=== PATIENT | male | born 1990 | race Caucasian/White ===

== ENCOUNTER 2023-11-09 17:23 | Emergency (ER) | payer OTHER, SELFPAY ==
[2023-11-09 17:26] VITALS: BP 144/83; PULSE 118; RESP 22; O2SAT 92
[2023-11-09 17:31] LABS: Glucose Point of Care 423 mg/dl (65-105)
--- NOTE | 2023-11-09 17:40 | ED.ALLEREA ---
HPI - Allergic Reaction General Chief complaint: Allergic Reaction <FEMI Benjamin Last Filed: 11/10/23 02:29> Stated complaint: allergic reaction <FEMI Benjamin Last Filed: 11/10/23 02:29> Time Seen by Provider: 11/09/23 17:40 <Swapnil Reid PA-C - Last Filed: 11/10/23 02:29> Source: patient <FEMI Benjamin Last Filed: 11/10/23 02:29> Mode of arrival: ambulatory <FEMI Benjamin Last Filed: 11/10/23 02:29> Limitations: no limitations <FEMI Benjamin Last Filed: 11/10/23 02:29> History of Present Illness HPI narrative: This is a 33-year-old male who presents to the ED with chief complaint possible allergic reaction. States that he got to work today and shortly after started to break out into a diffuse bodily rash. States that he started to feel short of breath so he came here. States he has known allergies to strawberries and bee stings but is not reporting any known exposure. States he works as a cook and had just started his day when this began. <FEMI Benjamin Last Filed: 11/10/23 02:29> Related Data Allergies/adverse reactions: Allergies Allergy/AdvReac Type Severity Reaction Status Date / Time strawberry Allergy Unknown VOMITING Verified 03/18/19 14:41 Bumble Bee Allergy Unknown SWELLING/DRAINAGE Uncoded 03/18/19 14:41 @ SITE <FEMI Benjamin Last Filed: 11/10/23 02:29> Review of Systems Review of Systems: All systems as dictated in HPI <FEMI Benjamin Last Filed: 11/10/23 02:29> FORMERLY [facility], [facility] Past Medical History Medical History: Medical History (Updated 11/10/23 @ 00:00 by Background Daemon) Arthritis back Fractures rt scapula GERD (gastroesophageal reflux disease) History of coronary artery disease History of diabetes mellitus <FEMI Benjamin Last Filed: 08/30/24 02:29> Surgical History Surgical History: Surgical History Hx of cholecystectomy Hx of tonsillectomy <Swapnil Reid PA-C - Last Filed: 11/10/23 02:29> Family History Family History: Family History Mother Family history of chronic obstructive pulmonary disease Family history of diabetes mellitus in first degree relative Father Family history of diabetes mellitus in first degree relative Sibling Patient's brother is <Swapnil Reid PA-C - Last Filed: 11/10/23 02:29> Social History Social History: Social History Smoking status: Current every day smoker Alcohol intake: never Gender identity (if verbalized by the patient): Male <Swapnil Reid PA-C - Last Filed: 11/10/23 02:29> Exam Narrative: GENERAL: Diaphoretic. appears in moderate distress HEAD: Normocephalic, atraumatic. EYES: PERRLA and EOMI. ENT: Nares clear, no rhinorrhea or epistaxis. Mucous membranes moist. Oropharynx without tonsillar hypertrophy exudate or other lesions. NECK: Supple. No adenopathy or masses. CHEST: mildly tachypneic. Mild wheezes heard bilaterally. Maintaining airway HEART: tachycardic in the 120s. No murmur heard. Normal peripheral pulses. ABDOMEN: Soft, nontender, nondistended, normal active bowel sounds. MSK: Normal range of motion. No edema. SKIN: flushed skin. NEURO: Alert and oriented x4. No focal deficits. PSYCH: Normal mood and affect. <Swapnil Reid PA-C - Last Filed: 11/10/23 02:29> Course TUNNEL KILN FIRER/PA Physician Supervision For this patient encounter, I reviewed the TUNNEL KILN FIRER or PA documentation, treatment plan, and medical decision making; and I had [id number] time with this patient. <Aakash Grover MD - Last Filed: 11/10/23 07:22> Reevaluation(s) Reevaluation #1: Patient is doing much better symptomatically. No longer appears in distress. <Swapnil Reid PA-C - Last Filed: 11/10/23 02:29> Date: 11/09/23 <LANDRY BenjaminC
[2023-11-09] MEDS: FAMOTIDINE 20 MG/2 ML VIAL IV PUSH (17:43)
[2023-11-09] MEDS: diphenhydrAMINE HCl INJ 50 MG/ML VIAL IV PUSH (17:44)
[2023-11-09] MEDS: methylPREDNISolone SOD SUCC 125 MG VIAL IV PUSH (17:44)
[2023-11-09] MEDS: EPINEPHrine HCL INJ 1 MG/ML AMPUL 0.3 MG IM (17:46)
[2023-11-09] MEDS: SODIUM CHLORIDE 0.9% IV 1,000 ML 999 ML IV CONT ×2 (17:50)
[2023-11-09 18:01] VITALS: BP 122/74; PULSE 105; RESP 20; O2SAT 95
[2023-11-09 18:09] LABS: Lactic Acid Reflex 1.8 mmol/L (0.7-2.0)
[2023-11-09 18:10] LABS: Alanine Aminotransferase 82 U/L (6-50); Albumin Level 3.9 g/dL (3.5-5.1); Alkaline Phosphatase 189 U/L (38-126); Anion Gap 10 mmol/L (4-12); Aspartate Amino Transferase 67 U/L (17-59); Bilirubin,Total 0.8 mg/dL (0.2-1.3); Blood Urea Nitrogen 15 mg/dL (9-20); Calcium 8.8 mg/dL (8.4-10.2); Carbon Dioxide 31 mmol/L (22-30); Chloride 93 mmol/L (98-107); Estimated CRCL calculation 202 ml/min; Estimated Glomerular Filt Rate > 60; Glucose 379 mg/dL (65-110); Sodium 134 mmol/L (137-145)
[2023-11-09 18:13] VITALS: O2SAT 95
[2023-11-09 18:22] LABS: Basophils Percent Auto 0.1 % (0.2-1.2); Eosinophils Absolute Auto 0.1 K/mm3 (0-0.3); Hemoglobin 16.6 g/dL (14.0-18.0); Immature Granulocyte Absolute 0.09 K/mm3 (0.00-0.031); Immature Granulocyte Percent A 0.7 % (0-0.5); Lymphocytes Absolute Auto 3.53 K/mm3 (0.9-3.2); Lymphocytes Percent Auto 26.3 % (18.3-44.2); Mean Corpuscular HGB Conc 35.3 g/dl (32-36); Mean Corpuscular Hemoglobin 28.8 pg (26-34); Mean Corpuscular Volume 81.5 fl (80-100); Mean Platelet Volume 10.7 fl (7.4-10.4); Monocytes Absolute Auto 0.6 K/mm3 (0.1-0.6); Monocytes Percent Auto 4.5 % (2.6-8.5); Neutrophils Percent Auto 67.4 % (45.5-73.1); Platelet Count Result 282 k/mm3 (150-375); Red Blood Count 5.77 M/mm3 (4.6-6.20); Red Cell Distribution Width 14.6 % (11.5-14.5); White Blood Count 13.4 K/mm3 (4.5-10.0)
[2023-11-09 19:21] VITALS: BP 107/60; PULSE 102; RESP 20; O2SAT 95
--- NOTE | 2023-11-09 19:22 | PC.NURSE ---
Assumed care of pt from WHITNEY Asif at this time. Pt resting comfortably in bed with call light within reach.
[2023-11-09 20:58] VITALS: BP 119/63; PULSE 99; RESP 22; TEMP 36.6; O2SAT 97
== END 2023-11-09 20:59 | disposition home or self-care (01) ==
PROVIDERS: Emergency Provider Physician Assistant; PCP Family Medicine
DX: T78.40XA Allergy, unspecified, initial encounter (principal); I25.10 Atherosclerotic heart disease of native coronary artery without angina pectoris; E11.9 Type 2 diabetes mellitus without complications; K21.9 Gastro-esophageal reflux disease without esophagitis; M19.90 Unspecified osteoarthritis, unspecified site; F17.200 Nicotine dependence, unspecified, uncomplicated; Z90.49 Acquired absence of other specified parts of digestive tract; X58.XXXA Exposure to other specified factors, initial encounter
CPT/HCPCS: 36415; 80053; 82948; 83605; 85025; 96361; 96372; 96374; 96375; 99284; J0171; J1200; J2919; J7030

== ENCOUNTER 2024-10-25 17:09 | Emergency (ER) | payer SELFPAY ==
--- NOTE | ~2024-10-25 | XR_ITS ---
CHEST RADIOGRAPH CLINICAL HISTORY: CP . COMPARISON: 12/12/2018 TECHNIQUE: Single portable view of the chest. FINDINGS The cardiomediastinal silhouette is within the upper limits of normal for size. Blunting of the left costophrenic sulcus suggesting a small left-sided pleural effusion. The remainder of the lungs are clear. IMPRESSION: Small left-sided pleural effusion without focal infiltrate. Reviewed, dictated and finalized at location A.
--- OUTSIDE RECORDS SUMMARY | 2024-10-25 17:12 | XMS_ITS | Encounter Summary ---
Author Organization [facility] Address [address] [place] [address] Phone Care Team Providers Care Air Pumper Name Role Phone Anthony Powers MD Primary Care Provider [phone] Bijal Glez Primary Care Provider + Garima Shaw MD Unavailable [phone] Colleen Salter APRN, JUNIOR UNDERWRITER Unavailable Reason for Visit * Reason Onset Date Comments PATIENT TRANSFER 10/31/2022 Encounter Details Date Type Department Care Team (Late st Contact Info) Description 10/31/2022 Telephone [facility] - [facility] [address] [place] [address] Anthony Powers MD [address] [place] [address] PATIENT TRANSFER Social History Tobacco Use Types Packs/Day Years Used Date Smoking Tobacco: Every Day Cigarettes 1 26.2 Started: 08/26/1998 Smokeless Tobacco: Never Alcohol Use Standard Drinks/Week Comments Not Currently 0 (1 standard drink = 0.6 oz pur e alcohol) rarely PHQ-2 Answer Date Recorded Total Score - Questions 1-9 0 08/11 Education Answer Date Recorded What is the highest level of school you have completed or the highest degree you have received? 10th grade 01/12/2021 Sexually Active Control Partners Comments Yes Female Sex and Gender Information Value Date Recorded Sex Assigned at Not on file Legal Sex Male 11:53 PM CDT Gender Identity Not on file Sexual Orientation Not on file documented as of this encounter Miscellaneous Notes * Telephone Encounter - Bijal Glez PAC - 10/31/2022 3:12 PM CDT ok * Telephone Encounter - Geetha Pereira - 10/31/2022 2:09 PM CDT Patient made an New Patient appointment with Bijal for 11/11/2022 on My Chart. He is a [facility] patient and would like to transfer to [facility]. Does Bijal accept the transfer? documented in this encounter Plan of Treatment Not on file documented as of this encounter Visit Diagnoses Not on filedocumented in this encounter Additional Health Concerns Infection Onset Date Last Indicated Resolved Time COVID - 19 03/16/2023 03/20/2023 03/22/2023 8:32 AM COMMERCIAL ENGINEER Respiratory Rule Out - RPA 03/20/2023 03/20/2023 0 03/21/2023 2:38 PM COMMERCIAL ENGINEER COVID - 19 11/01/2023 11/01/2023 11/01/2023 3:03 PM CDT COVID - 19 Confirmed 11/01/2023 11/01/2023 024 12:16 AM CDT COVID - 19 01/18/2024 01/18/2024 01/18/2024 8:02 PM COMMERCIAL ENGINEER Assessment Noted Time PHQ-9 Depression Total Score: 0 08/27/19 1:00 PM CDT documented as of this encounter Care Teams Air Pumper Relationship Specialty Start Date End Date Anthony Powers MD [address] [place] [address] PCP - General Internal Medicine 08/21/20 11/10/22 Bijal Glez, ALEXIS [address] [place] [address] PCP - General Physician Dairy Equipment Mechanic 11/11/22 Garima Shaw MD [address] [address] Consulting Physician Urology 10/19/21 Colleen Salter APRN, JUNIOR UNDERWRITER [address] [place] [address] Nurse Practitioner Advanced Practice Nurse 06/08/22 documented as of this encounter
--- OUTSIDE RECORDS SUMMARY | 2024-10-25 17:12 | XMS_ITS | Encounter Summary ---
Author Organization [facility] Address [address] [place] [address] Phone Care Team Providers Care Exterior Work Helper Name Role Phone Bijal Glez ALEXIS Primary Care Provider + Garima Shaw MD Unavailable [phone] Colleen Salter APRN, CNP Unavailable Reason for Visit * Reason Comments Medication Refill Encounter Details Date Type Department Care Team (Late st Contact Info) Description 11/15/2022 Refill [facility] - Primary Care - [place] [address] [place] [address] Anthony Powers MD [address] [place] [address] Medication Refill Social History Tobacco Use Types Packs/Day Years [...] on file Sexual Orientation Not on file COVID-19 Exposure Response Date Recorded In the last 10 days, have yo u been in contact with someone who was confirmed or suspected to have Coronavirus/COVID-19? No / Unsure 11/11/2022 10:29 AM CDT documented as of this encounter Miscellaneous Notes * Telephone Encounter - Radha Morataya RN - 11/15/2022 9:56 AM CDT The original prescription was discontinued on 11/11/2022 by Bijal Glez PAC for the following reason: Med List Clean Up. documented in this encounter Plan of Treatment Not on file documented as of this encounter Visit Diagnoses Diagnosis Intractable episodic cluster headache Episodic cluster headache documented in this encounter Additional Health Concerns Infection Onset Date Last Indicated Resolved Time COVID - 19 03/16/2023 03/20/2023 03/22/2023 8:32 AM JOURNEYMAN PRESS OPERATOR Respiratory Rule Out - RPA 03/20/2023 03/20/2023 0 03/21/2023 2:38 PM JOURNEYMAN PRESS OPERATOR COVID - 19 11/01/2023 11/01/2023 11/01/2023 3:03 PM CDT COVID - 19 Confirmed 11/01/2023 11/01/2023 024 12:16 AM CDT COVID - 19 01/18/2024 01/18/2024 01/18/2024 8:02 PM JOURNEYMAN PRESS OPERATOR Assessment Noted Time PHQ-9 Depression Total Score: 0 08/27/19 21 1:00 PM CDT documented as of this encounter Care Teams Exterior Work Helper Relationship Specialty Start Date End Date Bijal Glez PAC [address] [place] [address] PCP - General Physician Cyber Analyst 11/11/22 Garima Shaw MD [address] [address] Consulting Physician Urology 10/19/21 Colleen Salter APRN, [employer] [address] [place] [address] Nurse Practitioner Advanced Practice Nurse 06/08/22 documented as of this encounter
--- OUTSIDE RECORDS SUMMARY | 2024-10-25 17:12 | XMS_ITS | Encounter Summary ---
Author Organization [facility] Address [address] [place] [address] Phone Care Team Providers Care Director Epidemiology Name Role Phone Bijal Glez Primary Care Provider + Garima Shaw MD Unavailable [phone] Colleen Salter APRN, CNP Unavailable Reason for Visit * Reason Comments Medication Refill Encounter Details Date Type Department Care Team (Late st Contact Info) Description 08/05/2023 Refill [facility] [address] [place] [address] Bijal Glez PAC [address] [place] [address] Medication Refill Social History Tobacco Use Types Packs/Day Years Used Date Smoking Tobacco: Former Cigarettes 1 19 0 10/24/2022 - 03/20/2023 Smokeless Tobacco: Never Alcohol Use Standard Drinks/Week Comments Not Currently 0 (1 standard drink = 0.6 oz pur e alcohol) rarely [facility] Utilities Answer Date Recorded In the past 12 months has e electric, gas, oil, or water company threatened to shut off services in your home? No 05/10/2023 Social Connection and Isolation Panel Answer Date Recorded In a typical week, how many times do you talk on the phone with family, friends, or neighbors? More than three times a week 05/10/2023 How often do you get togethe r with friends or relatives? Twice a week 05/10/2023 How often do you attend chur ch or baptism services? Never 05/10/2023 Do you belong to any clubs o r organizations such as yazidi groups, unions, fraternal or athletic groups, or school groups? No 05/10/2023 How often do you attend meet ings of the clubs or organizations you belong to? Never 05/10/2023 Are you , , di vorced, , never , or living with a partner? 05/10/2023 AUDIT-C Answer Date Recorded Q1: How often do you have a drink containing alcohol? Never 05/10/2023 Q2: How many drinks containi ng alcohol do you have on a typical day when you are drinking? Patient does not drink Q3: How often do you have si x or more drinks on one occasion? Never 05/10/2023 Overall Financial Resource Strain (CARDIA) Answe r Date Recorded How hard is it for you to pa y for the very basics like food, housing, medical care, and heating? Not hard at all 05/10/2023 PHQ-2 Answer Date Recorded Total Score - Questions 1-9 0 08/11 [facility] - Occupational Stress Questionnaire Answer Date Recorded Do you feel stress - tense, restless, nervous, or anxious, or unable to sleep at night because your mind is troubled all the time - these days? Not at all 05/10/2023 Exercise Vital Sign Answer Date Recorde d On average, how many days pe r week do you engage in moderate to strenuous exercise (like a brisk walk)? 5 days 05/10/2023 On average, how many minutes do you engage in exercise at this level? 60 min 05/10/2023 Hunger Vital Sign Answer Date Recorded Within the past 12 months, y ou worried that your food would run out before you got the money to buy more. Never true Within the past 12 months, t he food you bought just didn't last and you didn't have money to get more. Sometimes true PRAPARE - Transportation Answer Date Re corded In the past 12 months, has l ack of transportation kept you from medical appointments or from getting medications? No 04/14 In the past 12 months, has l ack of transportation kept you from meetings, work, or from getting things needed for daily living? No 05/10/2023 Housing Stability Vital Sign Answer Roosevelt e Recorded In the last 12 months, was t here a time when you were not able to pay the mortgage or rent on time? No 05/10/2023 In the last 12 months, how many places have you lived? 1 05/10/2023 In the last 12 months, was t here a time when you did not have a steady place to sleep or slept in a correction (including now)? No 05/10/2023 Education Answer Date Recorded What is the [...] Telephone Encounter - Radha Morataya RN - 08/06/2023 12:49 PM CDT Medication failed the protocol, provider to review and approve the medication order if appropriate. Requested Prescriptions Pending Prescriptions Disp Refills ipratropium-albuterol (DUO-NEB) 0.5-2.5 (3) MG/3ML Solution [Pharmacy Med Name: IPRAT-ALBUT 0.5-3(2.5) MG/3 ML] 360 mL Sig: USE 1 VIAL VIA NEBULIZER FOUR TIMES DAILY NEEDED FOR WHEEZING OR SHORTNESS OF BREATH Inhaled Combinations Protocol Failed - 08/05/2023 12:02 AM Failed - Active short-acting beta agonist prescription Passed - Visit with relevant provider in past 12 months or upcoming 90 days Recent Visits Date Type Provider Dept 05/12/23 Office Visit Bijal Glez, ALEXIS [facility] 03/28/23 Office Visit Anthony Zambrano APRN, KRISTIN [facility] 02/10/23 Office Visit Bijal Glez, ALEXIS [facility] 11/11/22 Office Visit Bijal Glez PAC [facility] Showing recent visits within past 365 days and meeting all other requirements Future Appointments Date Type Provider Dept 09/11/23 Appointment Bijal Glez MarieALEXIS [facility] Showing future appointments within next 90 days and meeting all other requirements documented in this encounter Plan of Treatment Not on file documented as of this encounter Visit Diagnoses Diagnosis Community acquired pneumonia of both lower lobes Acute respiratory failure with hypoxia (HCC) Acute respiratory failure documented in this encounter Additional Health Concerns Infection Onset Date Last Indicated Resolved Time COVID - 19 11/01/2023 11/01/2023 11/01/2023 3:03 PM CDT COVID - 19 Confirmed 11/01/2023 11/01/2023 024 12:16 AM CDT COVID - 19 01/18/2024 01/18/2024 01/18/2024 8:02 PM MOUNTER CLARINETS Assessment Noted Time PHQ-9 Depression Total Score: 0 08/27/19 1:00 PM CDT documented as of this encounter Care Teams Director Epidemiology Relationship Specialty Start Date End Date Bijal Glez PAC [address] [place] [address] PCP - General Physician Heel Sprayer First 11/11/22 Garima Shaw MD [address] [address] Consulting Physician Urology 10/19/21 Colleen Salter APRN, STUDENT AFFAIRS DEAN [address] [place] [address] Nurse Practitioner Advanced Practice Nurse 06/08/22 documented as of this encounter
--- OUTSIDE RECORDS SUMMARY | 2024-10-25 17:12 | XMS_ITS | Encounter Summary ---
Author Organization [facility] Address [address] [place] [address] Phone Care Team Providers Care Testing Manager Name Role Phone Anthony Powers MD Primary Care Provider [phone] Bijal Glez Primary Care Provider + Garima Shaw MD Unavailable [phone] Colleen Salter APRN, TALENT REP Unavailable Reason for Visit * Reason Comments Medication Refill Encounter Details Date Type Department Care Team (Late st Contact Info) Description 07/01/2021 Refill [facility] - Gastroenterology - [place] [address] [place] [id number] Agatha West Nohelia, PAC [address] [place] [address] Medication Refill Social History Tobacco Use Types [...] 01/12/2021 Sexually Active Control Partners Comments Yes Sex and Gender Information Value Date Recorded Sex Assigned at Not on file Legal Sex Male 11:53 PM CDT Gender Identity Not on file Sexual Orientation Not on file documented as of this encounter Miscellaneous Notes * Telephone Encounter - Agatha West PAC - 07/01/2021 3:29 PM CDT Renewed for 30 days however he needs to comply with EGD. If he does not wish to proceed with the EGD he may return to primary care for for management. * Telephone Encounter - Marnie Paz RN - 07/01/2021 3:18 PM CDT Pharmacy requesting refill of: Requested Prescriptions Pending Prescriptions Disp Refills ??? sucralfate (CARAFATE) 1 GM Tablet [Pharmacy Med Name: SUCRALFATE 1GM TABLETS] 120 Tablet 3 Sig: TAKE 1 TABLET BY MOUTH FOUR TIMES DAILY BEFORE MEALS AND AT NIGHT Last fill: 02/15/2021 Patients last OV with GI: 02/15/2021 Next Office Visit with GI: None scheduled. EGD order noted to be placed per chart review, no EGD noted. carafate order pended, please review. documented in this encounter Plan of Treatment Not on file documented as of this encounter Visit Diagnoses Diagnosis Acute gastritis, presence of bleeding unspecified, unspecified gastritis type documented in this encounter Additional Health Concerns Infection Onset Date Last Indicated Resolved Time COVID - 19 08/27/2021 08/27/2021 09/06/2021 12:1 6 AM CDT COVID - 19 03/16/2023 03/20/2023 03/22/2023 8:32 AM PHARMACY TECHNICIAN ASSISTANT Respiratory Rule Out - RPA 03/20/2023 03/20/2023 0 03/21/2023 2:38 PM PHARMACY TECHNICIAN ASSISTANT COVID - 19 11/01/2023 11/01/2023 11/01/2023 3:03 PM CDT COVID - 19 Confirmed 11/01/2023 11/01/2023 024 12:16 AM CDT COVID - 19 01/18/2024 01/18/2024 01/18/2024 8:02 PM PHARMACY TECHNICIAN ASSISTANT Assessment Noted Time PHQ-9 Depression Total Score: 0 08/27/19 21 1:00 PM CDT documented as of this encounter Care Teams Testing Manager Relationship Specialty Start Date End Date Anthony Powers MD [address] [place] [address] PCP - General Internal Medicine 08/21/20 11/10/22 Bijal Glez PAC [address] [place] [address] PCP - General Physician Percussion Teacher 11/11/22 Garima Shaw MD [address] [address] Consulting Physician Urology 10/19/21 Colleen Salter APRN, TALENT REP [address] [place] [address] Nurse Practitioner Advanced Practice Nurse 06/08/22 documented as of this encounter
--- OUTSIDE RECORDS SUMMARY | 2024-10-25 17:13 | XMS_ITS | Clinical Summary ---
Author Organization [facility] Address [address] [place] [address] Phone Care Team Providers Care Electronic Bench Technician Name Role Phone Bijal Glez Primary Care Provider + Garima Shaw MD Unavailable [phone] Colleen Salter APRN, BLEACH BOILER FILLER Unavailable Allergies Active Allergy Reactions Criticality Noted Date Comments Bee Venom Swelling 05/26/2021 [place] (Diagnostic) Nausea 03/20/2023 Medications Blood Glucose Monitoring Suppl DeviceIndicatio ns:Type 2 diabetes mellitus with hyperglycemia, without long-term current use of insulin ([facility]) Diagnosis: Diabetes type 2 Blood testing frequency: 2 to 3 times a day 1 Each 3 Active Lancets MiscIndications :Type 2 diabetes mellitus with hyperglycemia, without long-term current use of insulin ([facility]) Test 2-3 times daily 100 Lancet 3 3 Active Glucose Blood (Glucose Meter Test) StripIndication s:Type 2 diabetes mellitus with hyperglycemia, without long-term current use of insulin ([facility]) Test 2-3 times daily 100 Strip 3 3 Active albuterol 108 (90 Base) MCG/ACT Aerosol Solution take 2 Puffs by inhalation every 6 hours as needed for Cough. 3.5 g 4 Active EPINEPHrine (EPIPEN) 0.3 MG/0.3ML Solution Auto-injectorIn dications:Bee sting allergy 0.3 mL by Intramuscular route once as needed for Anaphylaxis. 0.6 mL 5 Active SUMAtriptan (IMITREX) 100 MG TabletIndicatio ns:Intractable episodic cluster headache Take 1 Tablet by mouth daily as needed for Migraine. Use as directed. May repeat dose in 2 hours if headache recurs. 9 Tablet 5 Active Dulaglutide (Trulicity) 3 MG/0.5ML Solution Auto-injectorIn dications:Type 2 diabetes mellitus with hyperglycemia, without long-term current use of insulin (HCC) 3 mg by Subcutaneous route once a week. 2 mL 5 5 Active ipratropium-alb uterol (DUO-NEB) 0.5-2.5 (3) MG/3ML SolutionIndicat ions:Community acquired pneumonia of both lower lobes,Acute respiratory failure with hypoxia (HCC) 3 mL by Nebulization route 4 times daily. 360 mL 1 5 Active fluticasone (FLONASE) 50 MCG/ACT SuspensionIndic ations:Seasonal allergic rhinitis due to pollen 2 Sprays by Nasal route daily. Use in each nostril as directed. 18.2 mL 3 5 Active omeprazole (PriLOSEC) 40 MG CAPSULE DELAYED RELEASEIndicati ons:Acute gastritis, presence of bleeding unspecified, unspecified gastritis type Take 1 Capsule by mouth daily. 90 Capsule 1 5 Active metFORMIN (GLUCOPHAGE) 1000 MG TabletIndicatio ns:Type 2 diabetes mellitus without complication, without long-term current use of insulin Take 1 Tablet by mouth 2 times daily (with meals). 180 Tablet 1 5 Active glipiZIDE (GLUCOTROL XL) 5 MG TABLET SR 24 HRIndications:T ype 2 diabetes mellitus without complication, without long-term current use of insulin Take 1 Tablet by mouth 2 times daily. 180 Tablet 1 5 Active Active Problems Problem Noted Date Diagnosed Date Community acquired pneumonia of left lower lobe of lung 03/21/2023 Microscopic hematuria 03/21/2023 Acute respiratory failure with hypoxia DM2 (diabetes mellitus, type 2) 03/20/2023 Rectal bleeding 03/20/2023 Morbid obesity 03/20/2023 Tobacco abuse 03/20/2023 Cluster headache 03/20/2023 Seasonal allergies 03/20/2023 Marijuana use 03/20/2023 Arthritis 03/20/2023 Intractable episodic cluster headache 01/24/2022 NAFLD (nonalcoholic fatty liver disease) 021 Sleep apnea 06/17/2014 Gastro-esophageal reflux disease without esophag itis 06/17/2014 Type 2 diabetes mellitus wit hout complication, without long-term current use of insulin Encounters Date Type Department Care Team Description 08/10/2024 MyChart RX Renewal [facility] [address] [place] [address] Bijal Glez, ALEXIS Medication Renewal Reviewed from Last 3 Months Immunizations Immunization Administration Dates Next Due Covid-19, Mrna, Lnp-s, Pf, 3 0 Mcg/0.3 Ml Dose (TowerMetriX) 11/10/2020,10/20/2020 DTAP VACCINE 07/24/1996 DTP Vaccine 01/23/1996,1991 DTP-Hib 11/21/1995 Hepatitis A Vaccine 04/15/2021 Hib Vaccine,unspecified Formulation 1991 MMR Vaccine 01/23/1996,11/21/1995 OPV 07/24/1996,11/21/1995,1991 Pneumococcal conjugate PCV20 , polysaccharide JSH620 conjugate, adjuvant, PF 09/23/2021 TDAP Vaccine 12/25/2009 Family History Medical History Relation Name Comments Diabetes Father Cancer Maternal Grandfather Devan Diabetes Maternal Grandfather Devan Diabetes Maternal Grandmother Yolanda Diabetes Mother Karen Diabetes Paternal Grandfather Chelita Diabetes Paternal Grandmother Myrt Relation Name Status Comments Father Maternal Grandfather Devan Maternal Grandmother Yolanda Mother Karen Paternal Grandfather Chelita Paternal Grandmother Myrt Social History Tobacco Use Types Packs/Day Years Used Date Smoking Tobacco: Former Cigarettes 1 19 0 10/24/2022 - 03/20/2023 Smokeless Tobacco: Never Tobacco Cessation:Counseling Given: Not Answered Alcohol Use Standard Drinks/Week Comments Not Currently 0 (1 standard drink = 0.6 oz pur e alcohol) rarely C Utilities Answer Date Recorded In the past 12 months has e [employer], gas, oil, or water [employer] threatened to shut off services in your home? No 03/26/2024 Social Connection and Isolation Panel Answer Date Recorded In a typical week, how many times do you talk on the phone with family, friends, or neighbors? Once a week 03/26/2024 How often do you get together with friends or re latives? Once a week 03/26/2024 How often do you attend confucianist or latter day serv ices? Never 03/26/2024 Do you belong to any clubs o r organizations such as confucianist groups, unions, fraternal or athletic groups, or school groups? No 03/26/2024 How often do you attend meet ings of the clubs or organizations you belong to? Never 03/26/2024 Are you , , di vorced, , never , or living with a partner? 03/26/2024 AUDIT-C Answer Date Recorded Q1: How often do you have a drink containing alc ohol? 2-4 times a month 03/26/2024 Q2: How many drinks containi ng alcohol do you have on a typical day when you are drinking? 1 or 2 03/26/2024 Q3: How often do you have si x or more drinks on one occasion? Never 03/26/2024 Overall Financial Resource Strain (CARDIA) Answe r Date Recorded How hard is it for you to pa y for the very basics like food, housing, medical care, and heating? Not very hard 03/26/2024 PHQ-2 Answer Date Recorded Total Score - Questions 1-9 0 03/13 [facility] - Occupational Stress Questionnaire Answer Date Recorded Do you feel stress - tense, restless, nervous, or anxious, or unable to sleep at night because your mind is troubled all the time - these days? Only a little 03/26/2024 Exercise Vital Sign Answer Date Recorde d On average, how many days pe r week do you engage in moderate to strenuous exercise (like a brisk walk)? 5 days On average, how many minutes do you engage in exercise at this level? Patient declined 03/26/2024 Hunger Vital Sign Answer Date Recorded Within the past 12 months, y ou worried that your food would run out before you got the money to buy more. Never true 03/26/19 25 Within the past 12 months, t he food you bought just didn't last and you didn't have money to get more. Never true 03/26/2024 PRAPARE - Transportation Answer Date Re corded In the past 12 months, has l ack of transportation kept you from medical appointments or from getting medications? No 03/13 In the past 12 months, has l ack of transportation kept you from meetings, work, or from getting things needed for daily living? No 03/26/2024 Housing Stability Vital Sign Answer [facility] [...] place to sleep or slept in a senior living (including now)? No 05/10/2023 Housing Stability Vital Sign Answer [place] e Recorded In the last 12 months, was t here a time when you were not able to pay the mortgage or rent on time? No 03/26/2024 In the past 12 months, how m any times have you moved where you were living? 1 03/26/2024 At any time in the past 12 m [facility], were you homeless or living in a senior living (including now)? No 03/26/2024 Education Answer Date Recorded What is the highest level of school you have completed or the highest degree you have received? 10th grade 01/12/2021 Sexually Active Control Partners Comments Yes Female Sex and Gender Information Value Date Recorded Sex Assigned at Not on file Legal Sex Male 11:53 PM CDT Gender Identity Not on file Sexual Orientation Not on file Last Filed Vital Signs Vital Sign Reading Time Taken Comments Blood Pressure 110/70 03/28/2024 11:10 AM CURRICULUM AND ASSESSMENT COORDINATOR Pulse 107 03/28/2024 11:10 AM CURRICULUM AND ASSESSMENT COORDINATOR Temperature 36.4 C (97.6 F) 03/28/2024 11:10 AM CURRICULUM AND ASSESSMENT COORDINATOR Respiratory Rate 19 01/18/2024 8:45 PM CURRICULUM AND ASSESSMENT COORDINATOR Oxygen Saturation 95% 03/28/2024 11:10 AM CURRICULUM AND ASSESSMENT COORDINATOR Inhaled Oxygen Concentration - - Weight 178.3 kg (393 lb) 03/28/2024 11:10 AM CURRICULUM AND ASSESSMENT COORDINATOR Height 182.9 cm (6') 03/28/2024 11:10 AM CURRICULUM AND ASSESSMENT COORDINATOR Body Mass Index 53.3 03/28/2024 11:10 AM CURRICULUM AND ASSESSMENT COORDINATOR Plan of Treatment Health Maintenance Due Date Last Done Comments Diabetes: Foot Exam 1991 Hepatitis B Immunization (1 of 3 - 19+ 3-dose series) 10/01/2010 Human Papillomavirus (HPV) Immunization (1 - 3-dose SCDM series) 10/01/2018 DTaP/Tdap/Td Immunization (6 - Td or Tdap) 12/26/2019 12/25/2009, 07/24/1996, 01/23/1996, Additional history exists SARS-COV-2 Immunization ( season) 2023 11/10/2020, 10/20/2020 Diabetes: Eye Exam 11/24/2023 11/23/2022 Diabetes: Hemoglobin A1c 09/25/2024 025, 05/12/2023, 02/10/2023, Additional history exists Influenza Immunization (#1) 2024 Diabetes: Nephropathy Screening 03/28/2025 03/28/2024, 03/28/2024, 05/12/2023, Additional history exists Respiratory Syncytial Virus (RSV) Immunization (Adult) (1 - 1-dose 75+ series) 10/01/2066 Pneumococcal Immunization Combined Completed 09/23/2021 Hepatitis C Virus (HCV) Screening Discontinued Meningococcal Immunization (ACWY) Aged Out No longer eligible based on patient's age to complete this topic Rotavirus Immunization Aged Out No lo nger eligible based on patient's age to complete this topic Procedures Procedure Name Priority Date/Time Associated Diagnosis Comments UR MICROALBUMIN/CREATIN INE RATIO RANDOM Routine 03/28/2024 12:20 PM CURRICULUM AND ASSESSMENT COORDINATOR Type 2 diabetes mellitus without complication, without long-term current use of insulin (HCC) HEMOGLOBIN A1C W/ ESTIMATED GLUCOSE Routine 03/28/2024 12:20 PM CURRICULUM AND ASSESSMENT COORDINATOR Type 2 diabetes mellitus without complication, without long-term current use of insulin (HCC) from Last 3 Months or Most Recently Relevant to Health Maintenance Results * (ABNORMAL) HEMOGLOBIN A1C W/ ESTIMATED GLUCOSE (03/28/2024 12:20 PM CURRICULUM AND ASSESSMENT COORDINATOR) [facility] HGB-A1C 6.3(H) 4.0 - 6.0 % 03/28/2024 1:47 PM CURRICULUM AND ASSESSMENT COORDINATOR [facility] Est Average Glucose 134.1 mg/dL 03/28/2024 1:47 PM CURRICULUM AND ASSESSMENT COORDINATOR [facility] Blood Venipuncture / Unknown 03/28/2024 12:20 PM CURRICULUM AND ASSESSMENT COORDINATOR 03/28/2024 12:32 PM CURRICULUM AND ASSESSMENT COORDINATOR Narrative [facility] - 03/28/2024 1:47 PM CURRICULUM AND ASSESSMENT COORDINATOR HEMOGLOBIN A1C: DIABETIC PATIENTS: WELL-CONTROLLED: 6.2 - 7.0 INTERMEDIATE WELL-CONTROLLED: 7.0 - 9.0 POORLY-CONTROLLED: >9.0 Specimens containing greater than 5% of Hemoglobin F may result in lower than expected % HbA1C results. us Bijal Glez PAC CHEMISTRY ORDERABLES Fin al Result Performing Organization Address [facility] Co de Phone Number [facility] [address] [place] [address] * (ABNORMAL) UR MICROALBUMIN/CREATININE RATIO RANDOM (03/28/2024 12:20 PM CURRICULUM AND ASSESSMENT COORDINATOR) [facility] RAN UR MICROALBUMIN 14.06 mg/dL 03/28/2024 1:33 PM CURRICULUM AND ASSESSMENT COORDINATOR [facility] Comment:No reference range h as been established. Consider Clinical Correlation. CREATININE URINE 221.2 mg/dL 03/28/19 1:33 PM CURRICULUM AND ASSESSMENT COORDINATOR [facility] Comment:No reference range h as been established. Consider Clinical Correlation. ALB/CREAT RATIO 64(H) 0 - 30 mg/g CRE 03/28/2024 1:33 PM CURRICULUM AND ASSESSMENT COORDINATOR [facility] Urine Non-Phlebotomy Collection / Unknown 03/28/2024 12:20 PM CURRICULUM AND ASSESSMENT COORDINATOR 03/28/2024 12:32 PM CURRICULUM AND ASSESSMENT COORDINATOR us Bijal Glez PAC URINE ORDERABLES Final R esult Performing Organization Address [facility]/ZIP Co de Phone Number [facility] [address] [place] [address] from Last 3 Months or Most Recently Relevant to Health Maintenance Insurance MEDICAID [place] Advance Directives * Full Code (Latest Code Status on File) Date Activated Date Inactivated Comments 03/20/2023 9:37 PM 03/23/2023 7:01 PM CPR-Full Sarah tment: FULL ARREST: Attempt Resuscitation/CPR wit intubation and mechanical ventilation. PRE-ARREST: Use entire range of life support measures to stabilize the patient. Care Teams Electronic Bench Technician Relationship Specialty Start Date End Date Bijal Glez PAC [address] [place] [address] PCP - General Physician Single Stroke Preformer 11/11/22 Garima Shaw MD [address] [address] Consulting Physician Urology 10/19/21 Colleen Salter APRN, BLEACH BOILER FILLER [address] [place] [address] Nurse Practitioner Advanced Practice Nurse 06/08/22
--- OUTSIDE RECORDS SUMMARY | 2024-10-25 17:13 | XMS_ITS | Clinical Summary ---
Author Organization [facility] Address [address] [place] [address] Care Team Providers Care Cell Tender Helper Name Role Phone Pedrito Pike MD Primary Care Provider [phone] Source Comments [facility],non-owned Affiliates and Associated Physician Practices is amultiple site organization consisting of ambulatory clinics and hospital sitesin [place], [place] and [place]. This disclosure is being madepursuant to the Care Everywhere program and may not contain all information available regarding this patient. Last updated 17.[facility] Active Problems Problem Noted Date Diagnosed Date Obstructive sleep apnea 10/06/2014 Hypertrophy of tonsils with hypertrophy of adeno ids 06/17/2014 Obesity 06/17/2014 Sleep apnea 06/17/2014 Gastro-esophageal reflux disease without esophag itis 06/17/2014 Family History Medical History Relation Name Comments Arthritis - Rheumatoid Father Depression Father Diabetes Father Arthritis - Rheumatoid Maternal Grandmother Asthma Maternal Grandmother Bleeding Disorders Maternal Grandmother Diabetes Maternal Grandmother Heart Disease Maternal Grandmother Sickle Cell Anemia Maternal Grandmother Arthritis - Rheumatoid Mother Depression Mother Diabetes Mother Heart Disease Mother Kidney Disease Mother Liver Disease Mother Arthritis - Rheumatoid Paternal Grandmother Bleeding Disorders Paternal Grandmother Cancer Paternal Grandmother Diabetes Paternal Grandmother Glaucoma Paternal Grandmother Sickle Cell Anemia Paternal Grandmother Arthritis - Rheumatoid Sister Relation Name Status Comments Father Maternal Grandmother Mother Paternal Grandmother Sister Social History Tobacco Use Types Packs/Day Years Used Date Smoking Tobacco: Every Day Cigarettes Smokeless Tobacco: Never Alcohol Use Standard Drinks/Week Comments Yes 4.2 (1 standard drink = 0.6 oz p ure alcohol) Sex and Gender Information Value Date Recorded Sex Assigned at Not on file Legal Sex 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 Gender Identity Not on file Sexual Orientation Not on file Last Filed Vital Signs Vital Sign Reading Time Taken Comments Blood Pressure 156/87 10/07/2014 11:00 AM CDT Pulse 89 10/07/2014 11:00 AM CDT Temperature 36.8 C (98.3 F) 10/07/2014 8:00 AM CDT Respiratory Rate 20 10/07/2014 12:00 PM CDT Oxygen Saturation 95% 10/07/2014 12:00 PM CDT Inhaled Oxygen Concentration - - Weight 208.8 kg (460 lb 5 oz) 10/06/2014 6:45 AM CDT Height 182.9 cm (6') 10/06/2014 6:45 AM CDT Body Mass Index 62.43 10/06/2014 6:45 AM CDT Plan of Treatment Health Maintenance Due Date Last Done Comments HIV SCREENING 10/01/2006 HEPATITIS C SCREENING 09/27/2009 DTAP/TDAP/TD VACCINES (1 - Tdap) 10/01/2010 HEPATITIS B VACCINE (1 of 3 - 19+ 3-dose series) 10/01/2010 PNEUMOCOCCAL VACCINE (1 of 2 - PCV) 10/01/2010 HPV VACCINE (1 - 3-dose SCDM series) 10/01/2018 COVID-19 VACCINE (1 - 2023-2 5 season) 2023 DEPRESSION SCREENING 03/13/2024 INFLUENZA VACCINE (#1) 2024 ZOSTER VACCINE (1 of 2) 10/01/2041 HIB VACCINE Aged Out No longer eligi ble based on patient's age to complete this topic MENINGOCOCCAL (Group B) VACC INE SHARED DECISION-MAKING Aged Out No longer eligibl e based on patient's age to complete this topic MENINGOCOCCAL GROUPS A/C/Y/W VACCINE Aged Out No longer eligible b ased on patient's age to complete this topic Insurance [facility] [place] [address] [address] [place] [address] Care Teams Cell Tender Helper Relationship Specialty Start Date End Date Pedrito Pike MD [address] [facility] [address] [place] [id number] PCP - General 06/17/14
[2024-10-25 17:15] VITALS: BP 133/75; PULSE 95; RESP 20; TEMP 36.3; O2SAT 97
--- NOTE | 2024-10-25 17:54 | ECG_ITS ---
Test Date: 2024-10-25 18:35:25 Measurements Intervals [place] Rate: 90 P: -23 [place]: 160 QRS: 16 QRSD: 97 T: 62 QT: 348 QTc: 427 Interpretive Statements SINUS RHYTHM WITH FREQUENT VENTRICULAR PREMATURE COMPLEXES INCOMPLETE RIGHT BUNDLE BRANCH BLOCK DELAYED PRECORDIAL R/S TRANSITION LOW QRS VOLTAGE IN PRECORDIAL LEADS ABNORMAL ECG No previous ECG available for comparison Electronically Signed On 10-25-2024 18:55:43 CDT by Enzo Colón D.O.
[2024-10-25 18:00] VITALS: BP 131/78; PULSE 96; RESP 20; O2SAT 98
[2024-10-25 18:19] LABS: Hematocrit 43.4 % (42.0-52.0); Hemoglobin 14.8 g/dL (14.0-18.0); Immature Granulocyte Percent A 0.5 % (0-0.5); Lymphocytes Absolute Auto 3.27 K/mm3 (0.9-3.2); Mean Corpuscular HGB Conc 34.1 g/dl (32-36); Mean Corpuscular Hemoglobin 28.6 pg (26-34); Mean Corpuscular Volume 83.9 fl (80-100); Nucleated Red Blood Cells Absolute Auto 0.000 K/mm3 (0.0-0.012); Nucleated Red Blood Cells Perc 0.0 % (0.0-0.2); Platelet Count Result 213 k/mm3 (150-375); Red Blood Count 5.17 M/mm3 (4.6-6.20); White Blood Count 11.9 K/mm3 (4.5-10.0)
[2024-10-25 18:29] LABS: Alanine Aminotransferase 38 U/L (6-50); Albumin Level 4.1 g/dL (3.5-5.1); Alkaline Phosphatase 88 U/L (38-126); Anion Gap 7 mmol/L (4-12); Aspartate Amino Transferase 33 U/L (17-59); Bilirubin,Total 0.5 mg/dL (0.2-1.3); Blood Urea Nitrogen 16 mg/dL (9-20); Calcium 9.2 mg/dL (8.4-10.2); Carbon Dioxide 28 mmol/L (22-30); Chloride 104 mmol/L (98-107); Estimated CRCL calculation 212 ml/min; Estimated Glomerular Filt Rate > 60; Glucose 153 mg/dL (65-110); Lipase 39 U/L (23-300); Potassium 4.0 mmol/L (3.4-5.0); Sodium 139 mmol/L (137-145); Total Protein 7.4 g/dL (6.3-8.2)
--- OUTSIDE RECORDS SUMMARY | 2024-10-25 18:29 | XMS_ITS | Clinical Summary ---
Author Organization [facility] Address [address] [place] [address] Care Team Providers Care Automotive Paint Technician Name Role Phone Pedrito Pike MD Primary Care Provider [phone] Source Comments [facility],non-owned Affiliates and Associated Physician Practices is amultiple site organization consisting of ambulatory clinics and hospital sitesin [place], [place], [place]. This disclosure is being madepursuant to the Care Everywhere program and may not contain all information available regarding this patient. 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
--- OUTSIDE RECORDS SUMMARY | 2024-10-25 18:29 | XMS_ITS | Clinical Summary ---
Author Organization [facility] Address [address] [place] [address] Phone Care Team Providers Care Geothermal Hvac Technician Name Role Phone Bijal Glez Primary Care Provider + Garima Shaw MD Unavailable [phone] Colleen Salter APRN, DRUM SANDER OFFBEARER Unavailable Allergies Active Allergy Reactions Criticality Noted Date Comments Bee Venom Swelling 05/26/2021 [place] (Diagnostic) Nausea 03/20/2023 Medications Blood Glucose Monitoring Suppl DeviceIndicatio ns:Type 2 diabetes mellitus with hyperglycemia, without long-term current use of insulin ([facility]) Diagnosis: Diabetes type 2 Blood testing frequency: 2 to 3 times a day 1 Each 3 Active Lancets MiscIndications :Type 2 diabetes mellitus with hyperglycemia, without long-term current use of insulin ([facility]) Test 2-3 times daily 100 Lancet 3 3 Active Glucose Blood (Glucose Meter Test) StripIndication s:Type 2 diabetes mellitus with hyperglycemia, without long-term current use of insulin ([facility]) Test 2-3 times daily 100 Strip [...] RX Renewal [facility] [address] [place] [address] Bijal Glez, ALEXIS Medication Renewal Reviewed from Last 3 Months Immunizations Immunization Administration Dates Next Due Covid-19, Mrna, Lnp-s, Pf, 3 0 Mcg/0.3 Ml Dose ([employer]) 11/10/2020,10/20/2020 DTAP VACCINE 07/24/1996 DTP Vaccine 01/23/1996,1991 DTP-Hib 11/21/1995 Hepatitis A Vaccine 04/15/2021 Hib Vaccine,unspecified Formulation 1991 MMR Vaccine 01/23/1996,11/21/1995 OPV 07/24/1996,11/21/1995,1991 Pneumococcal conjugate PCV20 , polysaccharide BTO716 conjugate, adjuvant, PF 09/23/2021 TDAP Vaccine 12/25/2009 [...] In the past 12 months has e [facility], gas, oil, or water [email or web address] threatened to shut off services in your home? No 03/26/2024 Social Connection and Isolation Panel Answer Date Recorded In a typical week, how many times do you talk on the phone with family, friends, or neighbors? Once a week 03/26/2024 How often do you get together with friends or re latives? Once a week 03/26/2024 How often do you attend spiritism or mormonism serv ices? Never 03/26/2024 Do you belong to any clubs o r organizations such as spiritism groups, unions, fraternal or athletic groups, or [...] Total Score - Questions 1-9 0 03/13 [facility] - Occupational Stress Questionnaire Answer Date [...] place to sleep or slept in a longterm (including now)? No 05/10/2023 Housing Stability Vital Sign Answer Roosevelt e Recorded In the last 12 months, was t here a time when you were not able to pay the mortgage or rent on time? No 03/26/2024 In the past 12 months, how m any times have you moved where you were living? 1 03/26/2024 At any time in the past 12 m [facility], were you homeless or living in a longterm (including now)? No 03/26/2024 Education Answer Date [...] Comments Blood Pressure 110/70 03/28/2024 11:10 AM SECONDARY TEACHER Pulse 107 03/28/2024 11:10 AM SECONDARY TEACHER Temperature 36.4 C (97.6 F) 03/28/2024 11:10 AM SECONDARY TEACHER Respiratory Rate 19 01/18/2024 8:45 PM SECONDARY TEACHER Oxygen Saturation 95% 03/28/2024 11:10 AM SECONDARY TEACHER Inhaled Oxygen Concentration - - Weight 178.3 kg (393 lb) 03/28/2024 11:10 AM SECONDARY TEACHER Height 182.9 cm (6') 03/28/2024 11:10 AM SECONDARY TEACHER Body Mass Index 53.3 03/28/2024 11:10 AM SECONDARY TEACHER Plan of Treatment Health Maintenance Due Date [...] INE RATIO RANDOM Routine 03/28/2024 12:20 PM SECONDARY TEACHER Type 2 diabetes mellitus without complication, without long-term current use of insulin (HCC) HEMOGLOBIN A1C W/ ESTIMATED GLUCOSE Routine 03/28/2024 12:20 PM SECONDARY TEACHER Type 2 diabetes mellitus without complication, without long-term current use of insulin (HCC) from Last 3 Months or Most Recently Relevant to Health Maintenance Results * (ABNORMAL) HEMOGLOBIN A1C W/ ESTIMATED GLUCOSE (03/28/2024 12:20 PM SECONDARY TEACHER) [facility] HGB-A1C 6.3(H) 4.0 - 6.0 % 03/28/2024 1:47 PM SECONDARY TEACHER [facility] Est Average Glucose 134.1 mg/dL 03/28/2024 1:47 PM SECONDARY TEACHER [facility] Blood Venipuncture / Unknown 03/28/2024 12:20 PM SECONDARY TEACHER 03/28/2024 12:32 PM SECONDARY TEACHER Narrative [facility] - 03/28/2024 1:47 PM SECONDARY TEACHER HEMOGLOBIN A1C: DIABETIC PATIENTS: WELL-CONTROLLED: 6.2 - 7.0 INTERMEDIATE WELL-CONTROLLED: 7.0 - 9.0 POORLY-CONTROLLED: >9.0 Specimens containing greater than 5% of Hemoglobin F may result in lower than expected % HbA1C results. us Bijal Glez PAC CHEMISTRY ORDERABLES Fin al Result Performing Organization Address [facility] Co de Phone Number [facility] [address] [place] [address] * (ABNORMAL) UR MICROALBUMIN/CREATININE RATIO RANDOM (03/28/2024 12:20 PM SECONDARY TEACHER) [facility] RAN UR MICROALBUMIN 14.06 mg/dL 03/28/2024 1:33 PM SECONDARY TEACHER [facility] Comment:No reference range h as been established. Consider Clinical Correlation. CREATININE URINE 221.2 mg/dL 03/28/19 1:33 PM SECONDARY TEACHER [facility] Comment:No reference range h as been established. Consider Clinical Correlation. ALB/CREAT RATIO 64(H) 0 - 30 mg/g CRE 03/28/2024 1:33 PM SECONDARY TEACHER [facility] Urine Non-Phlebotomy Collection / Unknown 03/28/2024 12:20 PM SECONDARY TEACHER 03/28/2024 12:32 PM SECONDARY TEACHER us Bijal Glez PAC URINE ORDERABLES Final R esult Performing Organization Address [facility]/ZIP Co de Phone Number [facility] [address] [place] [address] from Last 3 Months or Most Recently Relevant to Health Maintenance Insurance MEDICAID [place] Advance Directives * Full Code (Latest Code Status on File) Date Activated Date Inactivated Comments 03/20/2023 9:37 PM 03/23/2023 7:01 PM CPR-Full Sarah tment: FULL ARREST: Attempt Resuscitation/CPR wit intubation and mechanical ventilation. PRE-ARREST: Use entire range of life support measures to stabilize the patient. Care Teams Geothermal Hvac Technician Relationship Specialty Start Date End Date Bijal Glez PAC [address] [place] [address] PCP - General Physician Tattoo Designer 11/11/22 Garima Shaw MD [address] [address] Consulting Physician Urology 10/19/21 Colleen Salter APRN, DRUM SANDER OFFBEARER [address] [place] [address] Nurse Practitioner Advanced Practice Nurse 06/08/22
--- OUTSIDE RECORDS SUMMARY | 2024-10-25 18:29 | XMS_ITS | Encounter Summary ---
Author Organization [facility] Address [address] [place] [address] Phone Care Team Providers Care Registered Nurse Post Partum Name Role Phone Bijal Glez Primary Care Provider + Garima Shaw MD Unavailable [phone] Colleen Salter APRN, CNP Unavailable Reason for Visit * Reason Comments Medication Refill Encounter Details Date Type Department Care Team (Late st Contact Info) Description 08/05/2023 Refill [facility] [address] [place] [address] Bijal Glez PAC [address] [place] [address] Medication Refill Social History Tobacco Use Types Packs/Day Years Used Date Smoking Tobacco: Former Cigarettes 1 19 0 10/24/2022 - 03/20/2023 Smokeless Tobacco: Never Alcohol Use Standard Drinks/Week Comments Not Currently 0 (1 standard drink = 0.6 oz pur e alcohol) rarely [facility] Utilities Answer Date Recorded In the past [...] often do you attend chur ch or mandaen services? Never 05/10/2023 Do you belong to any clubs o r organizations such as scientology groups, unions, fraternal or athletic groups, or [...] Score - Questions 1-9 0 08/11 [facility] - Occupational Stress [...] place to sleep or slept in a penitentiary (including now)? No 05/10/2023 Education Answer Date [...] 03/28/23 Office Visit Anthony Zambrano APRN, KRISTIN [facility] 02/10/23 Office Visit Bijal Glez, ALEXIS [facility] 11/11/22 Office Visit Bijal Glez PAC [facility] Showing recent visits within past 365 [...] - 19 01/18/2024 01/18/2024 01/18/2024 8:02 PM VP RHEUMATOLOGY Assessment Noted Time PHQ-9 Depression Total Score: 0 08/27/19 1:00 PM CDT documented as of this encounter Care Teams Registered Nurse Post Partum Relationship Specialty Start Date End Date Bijal Glez PAC [address] [place] [address] PCP - General Physician Supervisor Knitting 11/11/22 Garima Shaw MD [address] [address] Consulting Physician Urology 10/19/21 Colleen Salter APRN, GRADUATE RESEARCH ASSISTANT [address] [place] [address] Nurse Practitioner Advanced Practice Nurse 06/08/22 documented as of this encounter
--- OUTSIDE RECORDS SUMMARY | 2024-10-25 18:29 | XMS_ITS | Encounter Summary ---
Author Organization [facility] Address [address] [place] [address] Phone Care Team Providers Care Wine Cellar Stock Clerk Name Role Phone Bijal Glez ALEXIS Primary Care Provider + Garima Shaw MD Unavailable [phone] Colleen Salter APRN, CNP Unavailable Reason for Visit * Reason Comments Medication Refill Encounter Details Date Type Department Care Team (Late st Contact Info) Description 11/15/2022 Refill [facility] - [place] [address] [place] [address] Anthony Powers MD [address] [place] [address] Medication Refill Social History Tobacco [...] - 19 03/16/2023 03/20/2023 03/22/2023 8:32 AM ARCH CUSHION PRESS OPERATOR Respiratory Rule Out - RPA 03/20/2023 03/20/2023 0 03/21/2023 2:38 PM ARCH CUSHION PRESS OPERATOR COVID - 19 11/01/2023 11/01/2023 11/01/2023 3:03 PM CDT COVID - 19 Confirmed 11/01/2023 11/01/2023 024 12:16 AM CDT COVID - 19 01/18/2024 01/18/2024 01/18/2024 8:02 PM ARCH CUSHION PRESS OPERATOR Assessment Noted Time PHQ-9 Depression Total Score: 0 08/27/19 21 1:00 PM CDT documented as of this encounter Care Teams Wine Cellar Stock Clerk Relationship Specialty Start Date End Date Bijal Glez PAC [address] [place] [address] PCP - General Physician Surfboard Designer 11/11/22 Garima Shaw MD [address] [address] Consulting Physician Urology 10/19/21 Colleen Salter APRN, PETROGRAPHY TEACHER [address] [place] [address] Nurse Practitioner Advanced Practice Nurse 06/08/22 documented as of this encounter
--- OUTSIDE RECORDS SUMMARY | 2024-10-25 18:29 | XMS_ITS | Encounter Summary ---
Author Organization [facility] Address [address] [place] [address] Phone Care Team Providers Care Can Coverer Name Role Phone Anthony Powers MD Primary Care Provider [phone] Bijal Glez Primary Care Provider + Garima Shaw MD Unavailable Colleen Salter APRN, UNDERWRITING SALES REPRESENTATIVE Unavailable Reason for Visit * Reason Onset Date Comments PATIENT TRANSFER 10/31/2022 Encounter Details Date Type Department Care Team (Late st Contact Info) Description 10/31/2022 Telephone [facility] [address] [place] [address] Anthony Powers MD [address] [place] [address] PATIENT TRANSFER Social History Tobacco [...] 11/11/2022 on My Chart. He is a [facility] patient and would like to transfer to [facility]. Does Bijal accept the transfer? documented in this encounter Plan of Treatment Not on file documented as of this encounter Visit Diagnoses Not on filedocumented in this encounter Additional Health Concerns Infection Onset Date Last Indicated Resolved Time COVID - 19 03/16/2023 03/20/2023 03/22/2023 8:32 AM MARKETING WRITER Respiratory Rule Out - RPA 03/20/2023 03/20/2023 0 03/21/2023 2:38 PM MARKETING WRITER COVID - 19 11/01/2023 11/01/2023 11/01/2023 3:03 PM CDT COVID - 19 Confirmed 11/01/2023 11/01/2023 024 12:16 AM CDT COVID - 19 01/18/2024 01/18/2024 01/18/2024 8:02 PM MARKETING WRITER Assessment Noted Time PHQ-9 Depression Total Score: 0 08/27/19 1:00 PM CDT documented as of this encounter Care Teams Can Coverer Relationship Specialty Start Date End Date Anthony Powers MD [address] [place] [place] [address] PCP - General Internal Medicine 08/21/20 11/10/22 Bijal Glez, ALEXIS [address] [place] [address] PCP - General Physician Manager Game 11/11/22 Garima Shaw MD [address] [address] Consulting Physician Urology 10/19/21 Colleen Salter APRN, UNDERWRITING SALES REPRESENTATIVE [address] [place] [address] Nurse Practitioner Advanced Practice Nurse 06/08/22 documented as of this encounter
--- OUTSIDE RECORDS SUMMARY | 2024-10-25 18:29 | XMS_ITS | Encounter Summary ---
Author Organization [facility] Address [address] [place] [address] Phone Care Team Providers Care Commutator Presser Name Role Phone Anthony Powers MD Primary Care Provider [phone] Bijal Glez Primary Care Provider + Garima Shaw MD Unavailable [phone] Colleen Salter APRN, INSPECTOR TOOL Unavailable Reason for Visit * Reason Comments Medication Refill Encounter Details Date Type Department Care Team (Late st Contact Info) Description 07/01/2021 Refill [facility] - [place] [address] [place] [id number] Agatha West Nohelia, PAC [address] [place] [address] Medication Refill Social History Tobacco Use Types [...] - 19 03/16/2023 03/20/2023 03/22/2023 8:32 AM TOPSTITCHER LOCKSTITCH Respiratory Rule Out - RPA 03/20/2023 03/20/2023 0 03/21/2023 2:38 PM TOPSTITCHER LOCKSTITCH COVID - 19 11/01/2023 11/01/2023 11/01/2023 3:03 PM CDT COVID - 19 Confirmed 11/01/2023 11/01/2023 024 12:16 AM CDT COVID - 19 01/18/2024 01/18/2024 01/18/2024 8:02 PM TOPSTITCHER LOCKSTITCH Assessment Noted Time PHQ-9 Depression Total Score: 0 08/27/19 21 1:00 PM CDT documented as of this encounter Care Teams Commutator Presser Relationship Specialty Start Date End Date Anthony Powers MD [address] [place] [address] PCP - General Internal Medicine 08/21/20 11/10/22 Bijal Glez PAC [address] [place] [address] PCP - General Physician Contract Admin 11/11/22 Garima Shaw MD [address] [address] Consulting Physician Urology 10/19/21 Colleen Salter APRN, INSPECTOR TOOL [address] [place] [address] Nurse Practitioner Advanced Practice Nurse 06/08/22 documented as of this encounter
[2024-10-25 18:30] LABS: INR 1.0; Prothrombin Time 13.7 Seconds (11.1-14.7)
[2024-10-25] MEDS: ASPIRIN 81 MG CHEWABLE TABLET 324 MG PO (18:30)
[2024-10-25 18:31] LABS: Partial Thromboplastin Time 34.0 Seconds (22.3-36.8)
[2024-10-25 18:41] LABS: Troponin I < 0.012 ng/mL (0.000-0.034)
--- NOTE | 2024-10-25 18:42 | ED_ITS ---
HPI - General Adult General Chief complaint: Environmental Exposure Stated complaint: chemical exposure Time Seen by Provider: 10/25/24 17:12 Source: patient Mode of arrival: ambulatory Limitations: no limitations History of Present Illness HPI narrative: This is a 34 year old male that presents to the ER for chest tightness, shortness of breath. Reports he put his cigarette down and when he picked it back up to smoke it again he feels like he was exposed to something. He felt high, lightheaded, had chest tightness, shortness of breath. Report some continued lightheadedness. Related Data Allergies Allergy/AdvReac Type Severity Reaction Status Date / Time strawberry Allergy Unknown VOMITING Verified 03/18/19 14:41 Bumble Bee Allergy Unknown SWELLING/DRAINAGE Uncoded 03/18/19 14:41 @ SITE Review of Systems 2 Review of Systems: All systems reviewed & are unremarkable except as noted in HPI and below PMFSH Past Medical History Medical History (Updated 10/25/24 @ 20:29 by Bessy Crystal PA-C) History of coronary artery disease History of diabetes mellitus Fractures rt scapula Arthritis back GERD (gastroesophageal reflux disease) Surgical History Surgical History Hx of cholecystectomy Hx of tonsillectomy Family History Family History Mother Family history of chronic obstructive pulmonary disease Family history of diabetes mellitus in first degree relative Father Family history of diabetes mellitus in first degree relative Sibling Patient's brother is Social History Social History Smoking status: Current every day smoker Alcohol intake: never Gender identity (if verbalized by the patient): Male Exam 2 Narrative: GENERAL: Well-appearing, well-nourished, and in no acute distress. HEAD: Normocephalic, atraumatic. EYES: EOMI. CHEST: Clear to auscultation. No respiratory distress. No wheezes rales or rhonchi HEART: Regular rate and rhythm. No murmur heard. Normal peripheral pulses. EXTREMITIES: Normal range of motion. No edema. SKIN: Warm, dry, no rash. NEURO: No focal deficits. Alert and oriented x3. PSYCH: Normal mood and affect Course Vital Signs Vital signs: Vital Signs Temperature 97.3 F L 10/25/24 17:15 Pulse Rate 95 10/25/24 17:15 Respiratory Rate 20 10/25/24 17:15 Blood Pressure 133/75 10/25/24 17:15 Pulse Oximetry 97 10/25/24 17:15 Oxygen Delivery Room Air 10/25/24 17:15 Temperature 97.3 F L 10/25/24 17:15 Pulse Rate 86 10/25/24 20:00 Respiratory Rate 24 H 10/25/24 20:00 Blood Pressure 126/68 10/25/24 20:00 Pulse Oximetry 95 10/25/24 20:00 Oxygen Delivery Room Air 10/25/24 17:15 Medical Decision Making MDM Narrative Medical decision making narrative: Patient presents to the emergency department for an episode of chest pain, lightheadedness, shortness of breath. His vitals are stable. CBC with mild leukocytosis to 11.9. Patient is afebrile nontoxic appearing. Metabolic panel without concerning findings. EKG without acute ST changes, baseline troponin is negative. Chest x-ray showing a possible small left-sided pleural effusion. No focal infiltrates. BNP is not elevated. Patient updated on his workup thus far, he has refused IV, any further workup including 3 hour troponin. Given return precautions Vital Signs Vital Signs: Vital Signs Temperature 97.3 F L 10/25/24 17:15 Pulse Rate 95 10/25/24 17:15 Respiratory Rate 20 10/25/24 17:15 Blood Pressure 133/75 10/25/24 17:15 Pulse Oximetry 97 10/25/24 17:15 Oxygen Delivery Room Air 10/25/24 17:15 Temperature 97.3 F L 10/25/24 17:15 Pulse Rate 86 10/25/24 20:00 Respiratory Rate 24 H 10/25/24 20:00 Blood Pressure 126/68 10/25/24 20:00 Pulse Oximetry 95 10/25/24 20:00 Oxygen Delivery Room Air 10/25/24 17:15 Lab Data Lab results reviewed: Yes I reviewed the patient's lab results. 10/25/24 18:02 10/25/24 18:02 Labs: Lab Results 10/25/24 10/25/24 Range/Units 18:02 19:36 WBC 11.9 H (4.5-10.0) K/mm3 RBC 5.17 (4.6-6.20) M/mm3 Hgb 14.8 (14.0-18.0) g/dL Hct 43.4 (42.0-52.0) % MCV 83.9 (80-100) fl MCH 28.6 (26-34) pg MCHC 34.1 (32-36) g/dl RDW 14.4 (11.5-14.5) % Plt Count 213 (150-375) k/mm3 MPV 10.0 (7.4-10.4) fl Immature Gran % (Auto) 0.5 (0-0.5) % Neut % (Auto) 64.9 (45.5-73.1) % Lymph % (Auto) 27.4 (18.3-44.2) % [place]lands % (Auto) 4.9 (2.6-8.5) % Eos % (Auto) 1.8 (0-4.4) % Baso % (Auto) 0.5 (0.2-1.2) % Lymph # (Auto) 3.27 H (0.9-3.2) K/mm3 Highlands # (Auto) 0.6 (0.1-0.6) K/mm3 Eos # (Auto) 0.2 (0-0.3) K/mm3 Baso # (Auto) 0.1 (0.0-0.1) K/mm3 Abs Immat Gran (auto) 0.06 H (0.00-0.031) K/mm3 Absolute Neuts (auto) 7.7 H (1.3-6.7) K/mm3 Absolute Nucleated RBC 0.000 (0.0-0.012) K/mm3 Nucleated RBC % 0.0 (0.0-0.2) % PT 13.7 (11.1-14.7) Seconds INR 1.0 APTT 34.0 (22.3-36.8) Seconds Sodium 139 (137-145) mmol/L Potassium 4.0 (3.4-5.0) mmol/L Chloride 104 (98-107) mmol/L Carbon Dioxide 28 (22-30) mmol/L Anion Gap 7 (4-12) mmol/L BUN 16 (9-20) mg/dL Creatinine 0.74 (0.7-1.3) mg/dL Estim Creat Clear Calc 212 ml/min Estimated GFR > 60 (59 - ) Glucose 153 H (65-110) mg/dL Calcium 9.2 (8.4-10.2) mg/dL Total Bilirubin 0.5 (0.2-1.3) mg/dL AST 33 (17-59) U/L ALT 38 (6-50) U/L Alkaline Phosphatase 88 (38-126) U/L Troponin I < 0.012 (0.000-0.034) ng/mL NT-Pro-B Natriuret Pep < 20 (19.9-100) pg/mL Total Protein 7.4 (6.3-8.2) g/dL Albumin 4.1 (3.5-5.1) g/dL Lipase 39 (23-300) U/L Urine Opiates Screen Pending Urine Methadone Screen Pending Ur Barbiturates Screen Pending Ur Phencyclidine Scrn Pending Ur Amphetamine Screen Pending U Benzodiazepines Scrn Pending Urine Cocaine Screen Pending U Cannabinoids Screen Pending Imaging Data Radiologist's impression: ITS Impressions Chest X-Ray 10/25/24 18:38 IMPRESSION: Small left-sided pleural effusion without focal infiltrate. ECG Data EKG #1: ECG completion date: 10/25/24 EKG Interpretation: normal rate, sinus rhythm, no ST changes and normal QT Critical Care Time Critical Care Time Critical Care Time: No Discharge Plan Discharge Clinical Impression: Lightheadedness Patient Disposition: Home Condition: Improved Instructions: Chest Pain (ED), How to Stop Smoking (ED), Lightheadedness (ED) Additional Instructions: Return to the emergency department if you experience fever, chest pain, shortness of breath, abdominal pain with nausea and vomiting, or any other symptoms that are concerning to you. Follow up with your primary care doctor Patient Language: Welsh Prescriptions: No Action ofloxacin 0.3 % drops See Rx Instructions .ROUTE .COMPLEX Qty: 10 0RF Rx Instructions: put 1-2 drps into affected eye(s) every 2-4 h x 2 days, then 1-2 drps 4 times/day days 3-7 erythromycin 5 mg/gram (0.5 %) ointment 0.5 inch EACH EYE QID 7 Days Qty: 3.5 0RF Rx Instructions: Please apply topically 4 times daily into your left eye. Follow-up/Referrals: Amaris,RIGOBERTO [place] [Primary Care Provider] - Quality HEART score for chest pain patients History: slightly suspicious ECG: normal Age: < or = to 45 years Risk factors: > or = to 3 risk factors of atherosclerotic disease Troponin: < or = to 1x normal limit Heart score: 2
[2024-10-25 19:00] VITALS: BP 126/73; PULSE 95; RESP 18; O2SAT 95
[2024-10-25] MEDS: ACETAMINOPHEN 500 MG TABLET 1000 MG PO (19:00)
--- NOTE | 2024-10-25 19:01 | PC.NURSE ---
Patient refusing IV/IVF and IV medication- doesn't feel he needs them feeling better . Dani Crystal made aware
[2024-10-25] MEDS: FAMOTIDINE 20 MG TABLET PO (19:13)
[2024-10-25] MEDS: ONDANSETRON HCL ODT 4 MG TABLET PO (19:13)
[2024-10-25 20:00] VITALS: BP 126/68; PULSE 86; RESP 24; O2SAT 95
[2024-10-25 20:12] LABS: NT Pro B Type Natriuretic Pept < 20 pg/mL (19.9-100)
--- NOTE | 2024-10-25 20:16 | PC.NURSE ---
Patient reporting feeling better and wanting to go home. Bessy Crystal PA-C made aware
[2024-10-25 20:30] VITALS: BP 129/70; PULSE 80; RESP 22; TEMP 37.1; O2SAT 97
[2024-10-25 23:52] LABS: Cannabinoid Screen Urine Positive (Negative)
== END 2024-10-25 20:56 | disposition home or self-care (01) ==
PROVIDERS: Emergency Provider Physician Assistant; PCP Physician Assistant
DX: R42 Dizziness and giddiness (principal); I25.10 Atherosclerotic heart disease of native coronary artery without angina pectoris; E11.9 Type 2 diabetes mellitus without complications; K21.9 Gastro-esophageal reflux disease without esophagitis; F17.210 Nicotine dependence, cigarettes, uncomplicated; Z90.49 Acquired absence of other specified parts of digestive tract; J90 Pleural effusion, not elsewhere classified; I45.10 Unspecified right bundle-branch block; I49.3 Ventricular premature depolarization
CPT/HCPCS: 36415; 71045; 80053; 80307; 83690; 83880; 84484; 85025; 85610; 85730; 93005; 99284; A9270